=== PATIENT | female | born 1945 | race Caucasian/White ===

== ENCOUNTER 2024-04-27 08:59 | Emergency (ER) | payer OTHER ==
[~2024-04-27] VITALS: Ht 167.6 cm; Wt 68.9 kg
[2024-04-27] MEDS ORDERED: IPRATROPIUM NEB FS 0.5 MG/2.5 ML AMPUL.NEB ONE (09:32)
[2024-04-27] MEDS ORDERED: ALBUTEROL FS 2.5 MG/3 ML VIAL.NEB ONE (09:32)
[2024-04-27 09:35] LABS: BASOPHILS % (AUTO) 0.3 % (0.0-2.0); EOSINOPHILS % (AUTO) 0.5 % (0.0-6.0); HEMATOCRIT 39 % (33-45); HEMOGLOBIN 13.2 g/dL (11.5-14.8); LYMPHOCYTES # (AUTO) 1.1 K/uL (0.8-4.8); LYMPHOCYTES % (AUTO) 16.6 % (20.0-44.0); MEAN CORPUSCULAR HEMOGLOBIN 32 PG (26.0-33.0); MEAN CORPUSCULAR HGB CONC 34 g/dl (31.0-36.0); MEAN CORPUSCULAR VOLUME 94 fL (82-100); MONOCYTES # (AUTO) 0.6 K/uL (0.1-1.30); MONOCYTES % (AUTO) 8.7 % (2.0-12.0); NEUTROPHILS # (AUTO) 4.9 K/uL (1.8-8.9); NEUTROPHILS % (AUTO) 73.9 % (43.0-81.0); PLATELET COUNT (AUTO) 165 K/uL (150-450); RED CELL DISTRIBUTION WIDTH 12.8 % (11.5-15.0); WHITE BLOOD COUNT (AUTO) 6.6 K/uL (4.3-11.0)
[2024-04-27 09:39] VITALS: O2SAT 93
[2024-04-27] MEDS: IPRATROPIUM NEB FS 0.5 MG/2.5 ML AMPUL.NEB NEB ONE (09:39)
[2024-04-27] MEDS: ALBUTEROL FS 2.5 MG/3 ML VIAL.NEB NEB ONE (09:39)
[2024-04-27 09:47] LABS: CALCIUM, SERUM 8.4 mg/dL (8.5-10.1); CARBON DIOXIDE 30 mmol/L (21-32); CHLORIDE 97 mmol/L (98-107); CREATININE 0.4 mg/dL (0.6-1.3); GLUCOSE 126 mg/dL (74-106); POTASSIUM 3.9 mmol/L (3.5-5.1); SODIUM SERUM 131 mmol/L (136-145); UREA NITROGEN, BLOOD 5 mg/dL (7-18)
[2024-04-27] MEDS ORDERED: ACET-2030 PO (09:51)
[2024-04-27] MEDS ORDERED: ASPI-1169 PO (09:51)
[2024-04-27] MEDS ORDERED: ATOR20TA PO (09:51)
[2024-04-27] MEDS ORDERED: OXYC-128 PO (09:51)
[2024-04-27] MEDS ORDERED: SENN8.6T19 PO (09:51)
[2024-04-27] MEDS ORDERED: ALBU18HF2 IH (09:51)
[2024-04-27] MEDS ORDERED: DOCU-141 PO (09:51)
[2024-04-27] MEDS ORDERED: NALO4SPR NS (09:51)
[2024-04-27] MEDS ORDERED: MULT-213 PO (09:51)
[2024-04-27] MEDS ORDERED: FLUT1BLS16 IH (09:51)
[2024-04-27] MEDS ORDERED: CHOL200059 PO (09:51)
[2024-04-27] MEDS ORDERED: POLY17PO4 PO (09:51)
[2024-04-27] MEDS ORDERED: ASCO500T10 PO (09:51)
[2024-04-27 09:52] LABS: ALANINE AMINOTRANSFERASE 28 U/L (12-78); ALBUMIN 3.9 g/dL (3.4-5.0); ALKALINE PHOSPHATASE 74 U/L (46-116); ASPARTATE AMINOTRANSFERASE 25 U/L (15-37); BILIRUBIN,DIRECT 0.2 mg/dL (0.0-0.2); BILIRUBIN,TOTAL 0.5 mg/dL (0.2-1.0); TOTAL PROTEIN, SERUM 7.1 g/dL (6.4-8.2)
[2024-04-27 09:54] VITALS: O2SAT 96
[2024-04-27 10:04] LABS: LACTIC ACID 0.7 mmol/L (0.4-2.0)
[2024-04-27] MEDS ORDERED: OSELTAMIVIR PHOSPHATE 75 MG CAPSULE ONE (10:36)
[2024-04-27] MEDS ORDERED: methylPREDNISolone SOD SUCC 125 MG/2ML VIAL ONE (10:36)
[2024-04-27] MEDS: OSELTAMIVIR PHOSPHATE 75 MG CAPSULE PO ONE (10:45)
[2024-04-27] MEDS: methylPREDNISolone SOD SUCC 125 MG/2ML VIAL IV ONE (10:45)
[2024-04-27 11:07] VITALS: TEMP 99.2
[2024-04-27 14:15] VITALS: BP 144/85; O2SAT 94
[2024-04-27] MEDS ORDERED: ALBUTEROL FS 2.5 MG/3 ML VIAL.NEB NEB ONE (14:30)
== END 2024-04-27 14:42 ==
LOC: ER 09:05
DX: J44.1 Chronic obstructive pulmonary disease with (acute) exacerbation (principal); J11.1 Influenza due to unidentified influenza virus with other respiratory manifestations; R09.02 Hypoxemia; M81.0 Age-related osteoporosis without current pathological fracture; E78.5 Hyperlipidemia, unspecified; F32.A Depression, unspecified; Z79.51 Long term (current) use of inhaled steroids; Z79.82 Long term (current) use of aspirin; Z87.891 Personal history of nicotine dependence; Z20.822 Contact with and (suspected) exposure to COVID-19
CPT/HCPCS: 99291; 96374; 87426; 93005; 71045; 85025; 80048; 87040; 87804; 83605; 80076; 36415; 84484; 83880; 94640; J2919